=== PATIENT | male | born 1960 | race Caucasian/White ===

== ENCOUNTER → 2017-09-23 | Outpatient (CLI) | payer BC ==
--- NOTE | 2017-09-23 15:18 | Diagnostic Imaging Report ---
PROCEDURE:X-RAY ABDOMEN - KUB COMPARISON:Patients [facility], DX, ABDOMEN-1VIEW (KUB), 08/03/2016, 14:00. INDICATIONS:CALCULUS OF KIDNEY FINDINGS: There is a non-obstructed bowel-gas pattern. Moderate amount of retained stool which partly obscures the renal shadows No calcifications projected over the renal shadows, expected course of the ureters or bladder. There are no acute osseous abnormalities. The lung bases are clear. CONCLUSION: No radiographic evidence of urolithiasis Edy Lux M.D. Dictated by: Edy Lux M.D. on 09/23/2017 at 15:22 Electronically approved by: Edy Lux M.D. on 09/23/2017 at 15:22
== END ==
LOC: RAD 14:32
PROVIDERS: ATTEND Urology
DX: N20.0 Calculus of kidney (principal)
CPT/HCPCS: 74018

== ENCOUNTER → 2019-01-06 | Outpatient (CLI) | payer BC ==
--- NOTE | 2019-01-06 15:51 | Diagnostic Imaging Report ---
Exam: KUB - 2 views Indication: Renal calculi Comparison: Multiple prior KUBs, most recently of 09/23/2017 Findings: No radiographically apparent renal calculi. The osseous structures appear unremarkable. Nonobstructive bowel gas pattern. No free air. The minimally visualized lung bases appear clear. Impression: No radiographically apparent renal calculus. Signed by: Pio Zabala MD on 01/06/2019 3:48 PM
== END ==
LOC: RAD 13:35
PROVIDERS: ATTEND Urology
DX: N20.0 Calculus of kidney (principal)
CPT/HCPCS: 74018